=== PATIENT | female | born 1975 | race Caucasian/White ===

== ENCOUNTER 2017-03-22 06:47 | Emergency (ER) | payer OTHER ==
[~2017-03-22] VITALS: Ht 149.9 cm; Wt 88.9 kg
[2017-03-22 06:47] VITALS: BP_SYST 134
[2017-03-22] MEDS ORDERED: HYDR-1189 PO (07:21)
[2017-03-22] MEDS ORDERED: QUET300T2 PO (07:21)
[2017-03-22] MEDS ORDERED: METO25TA6 PO (07:21)
[2017-03-22] MEDS ORDERED: LEVE1000 PO (07:21)
[2017-03-22] MEDS ORDERED: VIS25 PO (07:21)
[2017-03-22] MEDS ORDERED: PHEN60TA11 PO (07:21)
[2017-03-22] MEDS ORDERED: SIMV20TA6 PO (07:21)
[2017-03-22] MEDS ORDERED: PHEN100C4 PO ×2 (07:21)
[2017-03-22] MEDS ORDERED: PRO20 PO (07:21)
[2017-03-22] MEDS ORDERED: NACL 0.9% 1,000 ML IV ONE (07:42)
[2017-03-22 08:25] LABS: BILIRUBIN,URINE NEGATIVE (NEGATIVE); BLOOD, URINE NEGATIVE (NEGATIVE); CLARITY/URINE CLEAR (CLEAR); COLOR,URINE YELLOW (YELLOW); GLUCOSE,URINE NEGATIVE (NEGATIVE); KETONES,URINE NEGATIVE (NEGATIVE); LEUKOCYTE ESTERASE ,URINE NEGATIVE (NEGATIVE); NITRITE, URINE NEGATIVE (NEGATIVE); PROTEIN URINE NEGATIVE (NEGATIVE); UROBILINOGEN,URINE 0.2 (0.2-1.0)
[2017-03-22 08:27] LABS: BASOPHILS # (AUTO) 0.1 K/uL (0.0-0.2); HEMATOCRIT 45.1 % (36-48); HEMOGLOBIN 14.8 g/dL (12.0-16.0); LYMPHOCYTES # (AUTO) 1.3 K/uL (1.0-5.5); LYMPHOCYTES % (AUTO) 17.4 % (20.5-51.5); MEAN CORPUSCULAR HEMOGLOBIN 29 pg (27-31); MEAN CORPUSCULAR HGB CONC 33 % (32-36); MEAN CORPUSCULAR VOLUME 89 fL (79.0-98.0); MONOCYTES # (AUTO) 0.5 K/uL (0.0-1.0); MONOCYTES % (AUTO) 6.7 % (1.7-9.3); NEUTROPHILS # (AUTO) 5.4 K/uL (1.8-7.7); NEUTROPHILS % (AUTO) 73.9 % (40.0-70.0); PLATELET COUNT (AUTO) 233 K/uL (130-430); RED CELL DISTRIBUTION WIDTH 12.8 % (9.0-15.0); WHITE BLOOD COUNT (AUTO) 7.4 K/uL (4.8-10.8)
[2017-03-22 08:33] LABS: BARBITURATE, URINE POSITIVE (NEG <=200); BENZODIAZEPINE, URINE NEGATIVE (NEG <=150); CANNABINOID, URINE NEGATIVE (NEG <=50); COCAINE, URINE NEGATIVE (NEG <=150); METHAMPHETAMINES SCREEN,URINE NEGATIVE (NEG <=500); OPIATE, URINE NEGATIVE (NEG <=100); PHENCYCLIDINE SCREEN,URINE NEGATIVE (NEG <=25); UR TRICYCLIC ANTIDEPRESSANTS NEGATIVE (NEG <=300); URINE AMPHETAMINE NEGATIVE (NEG <=500); URINE METHADONE NEGATIVE (NEG <=200); URINE OXYCODONE SCREEN NEGATIVE (NEG <=100); URINE PROPOXYPHENE SCREEN NEGATIVE (NEG <=300)
[2017-03-22 08:36] LABS: CALCIUM 9.7 mg/dL (8.4-11.0); CREATININE 0.6 mg/dL (0.55-1.30); POTASSIUM 4.4 mmol/L (3.5-5.1)
[2017-03-22 08:40] LABS: PHENYTOIN (DILANTIN) 22.4 ug/mL (10.0-20.0); TOTAL BILIRUBIN 0.6 mg/dL (0.0-1.0)
[2017-03-22 09:25] VITALS: BP_SYST 112
[2017-03-22 10:26] LABS: PHENOBARBITAL 23.7 ug/mL (15.0-40.0)
== END 2017-03-22 09:36 | disposition home or self-care (01) ==
LOC: SED 06:47
DX: G40.802 Other epilepsy, not intractable, without status epilepticus (principal); Z88.8 Allergy status to other drugs, medicaments and biological substances; Z79.899 Other long term (current) drug therapy
CPT/HCPCS: 36415; 70450-TC; 80053; 80184-TC; 80185-TC; 80307; 81003; 83735-TC; 85025; 99285